=== PATIENT | male | born 1980 | race Caucasian/White ===

== ENCOUNTER 2018-03-05 18:10 | Emergency (ER) | payer SELFPAY ==
[2018-03-05] MEDS ORDERED: Lidocaine 1% 20 ML MDV INJECT ONE (18:19)
[2018-03-05] MEDS ORDERED: Bupivacaine 0.25% 30 ML SDV INJECT ONE (18:19)
[2018-03-05] MEDS ORDERED: Bupivacaine 0.25% 10 ML SDV ONE (18:40)
[2018-03-05] MEDS ORDERED: Lidocaine 1% with EPINEPHrine 1:100,000 20 ML MDV INJECT ONE (18:41)
[2018-03-05] MEDS ORDERED: Lidocaine 1% with EPINEPHrine 1:100,000 20 ML MDV ONE (18:41)
[2018-03-05] MEDS ORDERED: LORazepam 1 MG Tab PO ONE (19:03)
[2018-03-05] MEDS ORDERED: Acetaminophen/HYDROcodone 325-5 MG Tab PO PRN (19:04)
[2018-03-05] MEDS ORDERED: LORazepam 1 MG Tab ONE (19:05)
[2018-03-05] MEDS ORDERED: Acetaminophen/HYDROcodone 325-5 MG Tab ONE (19:08)
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
--- NOTE | 2018-03-05 20:06 | PCM.OPNOTE ---
- General Post-Op/Procedure Note Date of Surgery/Procedure: 03/05/18 Operative Procedure(s): repair of left thumb laceration with digital nerve repair, muscle repair and skin closure of 8cm. Pre Op Diagnosis: left thumb laceration involving muscle and digital nerve Post-Op Diagnosis: Same Anesthesia Technique: Local Primary Surgeon: Xi Fernandez Complications: None Condition: Good
== END 2018-03-05 20:17 | disposition home or self-care (01) ==
LOC: MW.ED 18:10
DX: S64.32XA Injury of digital nerve of left thumb, initial encounter (principal); S66.022A Laceration of long flexor muscle, fascia and tendon of left thumb at wrist and hand level, initial encounter; S61.012A Laceration without foreign body of left thumb without damage to nail, initial encounter; F17.210 Nicotine dependence, cigarettes, uncomplicated; W26.8XXA Contact with other sharp object(s), not elsewhere classified, initial encounter
CPT/HCPCS: 64831; 99283; A9270